=== PATIENT | male | born 1940 | race Caucasian/White ===

== ENCOUNTER → 2016-06-11 | Outpatient (CLI) | payer MEDICARE, BC ==
[~2016-06-11] MED LIST: ALPHAGAN P 10 M10 M1 OP; ASPIRIN 81MG TA81 MG PO; AZOPT 1% OP; BENADRYL 50MG C50 MG PO; BOT OP; DILTIAZEM ER 1120 MG PO; DIOVAN HCT 12.51 TAB PO; LEVOFLOXACIN 7750 M1 PO; LOMOTIL 2.5MG.2.5 MG PO; LOSARTAN POTASS1 TAB PO; METHOTREXATE 22.5 MG PO; METRONIDAZOLE500 MG PO; NYSTATIN100000 U/M OR; OMEPRAZOLE20 MG PO; PLAVIX75 MG PO; PREDNISONE20 MG PO; STELARA90 MG/ML SC; TESSALON PERLE100 MG PO; XALATAN 0.2.5 ML/BOT OP; [UNRECOGNIZED DRUG - REMARK] PO
[2016-06-11 08:34] LABS: HEMOGLOBIN 12.8 g/dL (14.1-18.0); LYMPH # 1.6 K/mm3 (0.7-4.5); LYMPH % 20.4 % (10-50)
[2016-06-11 10:56] LABS: BUN 11 mg/dL (7-18)
[2016-06-11 10:57] LABS: GFR (ESTIMATED) 73 ML/MIN (>60)
== END ==
LOC: LAB 08:13
PROVIDERS: Dermatology
DX: L40.0 Psoriasis vulgaris (principal); Z92.25 Personal history of immunosuppression therapy; Z79.899 Other long term (current) drug therapy

== ENCOUNTER → 2016-07-20 | Outpatient (CLI) | payer MEDICARE, BC ==
[2016-07-20 07:39] LABS: HEMOGLOBIN 12.6 g/dL (14.1-18.0); LYMPH # 0.9 K/mm3 (0.7-4.5); LYMPH % 15.3 % (10-50)
[2016-07-20 08:17] LABS: BUN 13 mg/dL (7-18)
[2016-07-20 08:22] LABS: GFR (ESTIMATED) 65 ML/MIN (>60)
== END ==
LOC: LAB 07:18
PROVIDERS: Dermatology
DX: L40.0 Psoriasis vulgaris (principal); Z92.25 Personal history of immunosuppression therapy; Z79.899 Other long term (current) drug therapy

== ENCOUNTER → 2017-02-25 | Outpatient (CLI) | payer MEDICARE, BC ==
[2017-02-25 10:51] LABS: HEMOGLOBIN 13.3 g/dL (14.1-18.0); LYMPH # 1.2 K/mm3 (0.7-4.5); LYMPH % 14.3 % (10-50)
[2017-02-25 11:27] LABS: BUN 12 mg/dL (7-18)
[2017-02-25 11:29] LABS: GFR (ESTIMATED) 73 ML/MIN (>60)
[2017-02-26 15:17] LABS: PROSTATE-SPECIFIC ANTIGEN F/U 3.3 ng/mL (0.0-4.0)
== END ==
LOC: LAB 08:00
PROVIDERS: Internal Medicine
DX: L40.0 Psoriasis vulgaris (principal); E11.9 Type 2 diabetes mellitus without complications; E78.5 Hyperlipidemia, unspecified; R97.20 Elevated prostate specific antigen [PSA]; Z12.5 Encounter for screening for malignant neoplasm of prostate
CPT/HCPCS: G0103

== ENCOUNTER → 2017-04-08 | Outpatient (CLI) | payer MEDICARE, BC ==
[2017-04-08 08:46] LABS: HEMOGLOBIN 13.3 g/dL (14.1-18.0); LYMPH # 1.9 K/mm3 (0.7-4.5); LYMPH % 23.2 % (10-50)
[2017-04-08 10:57] LABS: BUN 16 mg/dL (7-18)
[2017-04-08 11:06] LABS: GFR (ESTIMATED) 59 ML/MIN (>60)
== END ==
LOC: LAB 08:23
PROVIDERS: Dermatology
DX: L40.0 Psoriasis vulgaris (principal)

== ENCOUNTER → 2017-05-13 | Outpatient (CLI) | payer MEDICARE, BC ==
[2017-05-13 08:44] LABS: HEMOGLOBIN 13.2 g/dL (14.1-18.0); LYMPH # 1.4 K/mm3 (0.7-4.5); LYMPH % 24.6 % (10-50)
[2017-05-13 11:30] LABS: BUN 14 mg/dL (7-18)
[2017-05-13 11:34] LABS: GFR (ESTIMATED) 65 ML/MIN (>60)
[2017-05-15 03:37] LABS: Free Testosterone(Direct) 7.7 pg/mL (6.6-18.1)
== END ==
LOC: LAB 07:19
PROVIDERS: Dermatology; Urology
DX: L40.0 Psoriasis vulgaris (principal); R53.83 Other fatigue